=== PATIENT | male | born 1975 ===

== ENCOUNTER 2020-08-08 14:07 | Emergency (ER) | payer SELFPAY ==
[~2020-08-08] VITALS: Ht 177.8 cm; Wt 68.2 kg
[2020-08-08 14:38] VITALS: BP 187/122; Ht 177.8 cm; Wt 68.2 kg
== END 2020-08-08 17:30 | disposition left against medical advice (07) ==
LOC: D.ER 14:07
DX: R55 Syncope and collapse (principal)